=== PATIENT | male | born 1995 ===

== ENCOUNTER 2019-02-11 17:52 | Emergency (ER) | payer OTHER ==
--- NOTE | 2019-02-11 18:21 | UC ---
Lower Extremity/Ankle HPI - HPI Summary HPI Summary: 23-year-old male comes in with a chief complaint of right foot and ankle pain. Yesterday was going down some stairs and he landed wrong and he's been having pain in his mid foot and his ankle on the right side ever since then. He has been able to walk but it does hurt to walk. He took some ibuprofen just prior to coming and that did help with the pain some. No complaint of any knee pain. - History of Current Complaint Stated Complaint: ANKLE INJURY Time Seen by Provider: 02/11/19 18:04 - Allergies/Home Medications Allergies/Adverse Reactions: Allergies Allergy/AdvReac Type Severity Reaction Status Date / Time No Known Allergies Allergy Verified 02/11/19 18:38 Home Medications: Home Medications Minocycline (NF) 50 mg PO DAILY 02/11/19 [History Confirmed 02/11/19] PMH/Surg Hx/FS Hx/Imm Hx Previously Healthy: Yes - Family History Known Family History: Positive: Non-Contributory Review of Systems All Other Systems Reviewed And Are Negative: Yes Constitutional: Positive: Negative Skin: Positive: Negative Eyes: Positive: Negative ENT: Positive: Negative Respiratory: Positive: Negative Cardiovascular: Positive: Negative Gastrointestinal: Positive: Negative Motor: Positive: Negative Neurovascular: Positive: Negative Musculoskeletal: Positive: Other: - SEE HPI Neurological: Positive: Negative Psychological: Positive: Negative Is Patient Immunocompromised?: No Physical Exam Triage Information Reviewed: Yes Appearance: Well-Appearing, No Pain Distress, Well-Nourished Vital Signs Reviewed: Yes Eye Exam: Normal Eyes: Positive: Conjunctiva Clear Neck: Positive: Supple Musculoskeletal: Positive: Strength Intact, ROM Intact, Other: - Right ankle has full range of motion but elicits pain in the anterior ankle and the midfoot. The midfoot is tender to palpation. Normal capillary refill normal pulses normal sensation. Achilles tendon is intact. Neurological: Positive: Alert Psychological: Positive: Age Appropriate Behavior Skin Exam: Normal Lower Extremity Course/Dx - Course Course Of Treatment: I discussed the x-rays with the patient. I do not see any fractures radiologist reading is pending. Jr wrap and gel splint were placed by nursing and clinic patient neurovascular intact after placement. Patient also going with crutches weightbearing as tolerated. Ice elevation anti-inflammatories and follow-up with sports medicine if not completely improved. - Differential Dx/Diagnosis Provider Diagnosis: Right ankle sprain, Right foot sprain Discharge - Sign-Out/Discharge Documenting (check all that apply): Patient Departure All imaging exams completed and their final reports reviewed: No - Discharge Plan Condition: Stable Disposition: HOME Patient Education Materials: Ankle Sprain (ED), Foot Sprain (ED) Referrals: [facility] [Provider Group] Additional Instructions: FOLLOW UP WITH SPORTS MEDICINE IF NOT COMPLETELY IMPROVED. GET RECHECKED SOONER IF YOUR CONDITION WORSENS OR ANY QUESTIONS OR CONCERNS. - Billing Disposition and Condition Condition: STABLE Disposition: Home
== END 2019-02-11 19:00 | disposition home or self-care (01) ==
LOC: UCEAST 17:52
DX: S93.601A Unspecified sprain of right foot, initial encounter (principal); S93.401A Sprain of unspecified ligament of right ankle, initial encounter; X50.9XXA Other and unspecified overexertion or strenuous movements or postures, initial encounter; Y93.01 Activity, walking, marching and hiking; Y92.9 Unspecified place or not applicable
CPT/HCPCS: 99203; G0463